=== PATIENT | female | born 1945 | race Caucasian/White ===

== ENCOUNTER → 2018-01-17 | Outpatient (CLI) | payer MEDICARE ==
--- NOTE | 2018-01-17 16:53 | CT ---
PROCEDURE: Head HISTORY: DIZZINESS, HEADACHE Indication: Same as above Comparison: None Technique: CT of the head was done without intravenous contrast was done in the orthogonal planes. This exam was performed according to our departmental dose-optimization program, which includes automated exposure control, adjustment of the mA and/or KV according to the patient's size and/or use of iterative reconstruction technique. FINDINGS: There is no intracranial hemorrhage, midline shift mass effect or acute focal infarct. There is prominence of the sylvian fissures and the cortical sulci reflecting age related volume loss. If clinical concern exists regarding an acute ischemic/vascular pathology being responsible for patient's symptomatology, an MRI of the brain is more sensitive than the current study, in ruling out such a possibility. There is good hutchinson/white matter differentiation. The ventricular system is normal. The mastoid air cells are unremarkable . The paranasal sinuses are unremarkable . There is no visualization of acute fractures involving the calvarium or the skull base. IMPRESSION: There is no acute intracranial abnormality. Age-related involutional changes are seen. Electronically signed by: Maik Ball MD 01/17/2018 4:52 PM CDT Workstation: [id number]
== END ==
LOC: CT 16:24
PROVIDERS: ATTEND Nurse Practitioner Family
DX: R51 Headache (principal); N39.0 Urinary tract infection, site not specified; I10 Essential (primary) hypertension; Z79.899 Other long term (current) drug therapy

== ENCOUNTER → 2018-02-07 | Outpatient (CLI) | payer MEDICARE | LOC: GMAJ 17:58 | PROVIDERS: ATTEND Family Medicine | DX: M79.1 Myalgia (principal) ==

== ENCOUNTER → 2018-10-17 | Outpatient (CLI) | payer MEDICARE | LOC: GMAJ 14:30 | PROVIDERS: ATTEND Family Medicine | DX: E03.9 Hypothyroidism, unspecified (principal) ==

== ENCOUNTER 2018-11-23 10:28 | Emergency (ER) | payer MEDICARE ==
[2018-11-23 10:51] VITALS: TEMP 98.5
--- NOTE | 2018-11-23 10:56 | ED.PDOC ---
History of Present Illness - General Chief Complaint: Neuro Symptoms/Deficits Stated Complaint: left sided weakness Time Seen by Provider: 11/23/18 10:52 Source: patient Exam Limitations: no limitations - History of Present Illness Initial Comments: Corine Shea 73 y/o female came to ER stating her left leg was weak at about 0430 h this morning but was able to get up and go to the bathroom went back to sleep and woke up this am still left leg weak and felt unsteady .Patient walking at ER without assistance no unsteadiness noted.No slurred speech,no facial weakness has left sided headache and took her migraine medicine which relieved the head ache.No blurry vision. Timing/Duration: 4-6 hours Severity: moderate Episode Description: see hpi Improving Factors: nothing Worsening Factors: nothing Associated Symptoms: other - see hpi Allergies/Adverse Reactions: Allergies Penicillins Allergy (Unknown, Verified 11/23/18 10:48) Home Medications: Ambulatory Orders Aspirin [Aspirin Adult Low Dose] 81 mg PO DAILY 11/23/18 Clopidogrel Bisulfate [Plavix] 75 mg PO QDPC #30 tab 11/23/18 Levothyroxine Sodium [Synthroid] 75 mcg PO DAILY 11/23/18 Metoprolol Succinate [Toprol Xl] 100 mg PO DAILY 11/23/18 Review of Systems - Review of Systems Constitutional: States: no symptoms reported EENTM: States: no symptoms reported Respiratory: States: no symptoms reported Cardiology: States: no symptoms reported Gastrointestinal/Abdominal: States: no symptoms reported Genitourinary: States: no symptoms reported Musculoskeletal: States: no symptoms reported Skin: States: no symptoms reported Neurological: States: see HPI Endocrine: States: no symptoms reported Past Medical History (General) - Patient Medical History Hx Stroke: No Hx Congestive Heart Failure: No Hx Hypertension: Yes Hx Thyroid Disease: Yes Hx Diabetes: No Hx Cancer: Yes - breast Surgical History: cholecystectomy, other - breast lumpectomy;hysterectomy - Vaccination History Hx Influenza Vaccination: No Hx Pneumococcal Vaccination: Yes - Social History Hx Tobacco Use: No Hx Physical Abuse: No Hx Emotional Abuse: No Family Medical History - Family History Mother Family History: Unknown Living Status: Unknown Hx Family Hypertension: Yes - mom Hx Cardiac Disease: Yes - dad Physical Exam - Physical Exam General Appearance: Alert, Comfortable, No apparent distress, Other - speaks in full sentences Eye Exam: bilateral normal ENT Exam: normal ENT inspection, hearing grossly normal, pharynx normal Neck: non-tender, supple, normal inspection, trachea midline Respiratory: chest non-tender, lungs clear, normal breath sounds Cardiovascular/Chest: normal peripheral pulses, regular rate, rhythm, no murmur Peripheral Pulses: radial,right: 2+, radial,left: 2+ Gastrointestinal/Abdominal: non tender, soft Back Exam: normal inspection, no CVA tenderness, no vertebral tenderness Extremities Exam: non-tender, no edema Mental Status: alert, oriented x 3 information assistant Exam: normal hearing, normal speech, PERRL Coordination/Gait: normal gait, negative Romberg's sign Motor/Sensory: no motor deficit, no sensory deficit, no pronator drift Skin Exam: normal color, warm/dry Progress - Progress Progress: 11/23/18 14:23 Vital Signs - 8 hr 11/23/18 11/23/18 11/23/18 10:47 11:08 12:00 Temperature 98.5 F Pulse Rate [ 73 83 83 Left Brachial] Respiratory 20 18 18 Rate Blood Pressure 214/113 201/96 206/111 [Left Arm] O2 Sat by Pulse 97 95 96 Oximetry 11/23/18 13:00 Temperature Pulse Rate [ 79 Left Brachial] Respiratory 18 Rate Blood Pressure 193/101 [Left Arm] O2 Sat by Pulse 98 Oximetry 11/23/18 15:02 Discuss all test result with patient no acute findings noted recommend admit to hospital for OBS and called up [facility] hospitalist for admit discuss lab findings and head ct findings but requesting MRI-Head prior to hospital admit since they wont do MRI in patient then called up X-ray same reason need precertification.This was relayed to patient and offered to get transferred to other hospital but declined wants to stay home called up her daughter to stay with her. - Results/Orders Results/Orders: 11/23/18 11:15 EKG STAT Laboratory Results - last 24 hr 11/23/18 11/23/18 11/23/18 10:40 10:40 12:05 WBC 8.8 9.7 RBC 4.68 4.63 Hgb 14.4 14.1 Hct 42.8 42.1 MCV 91.6 91.0 MCH 30.7 30.4 MCHC 33.5 33.4 RDW 12.8 12.7 Plt Count 407 H 370 MPV 9.2 8.4 Absolute Neuts (auto) 5.40 7.30 H Absolute Lymphs (auto) 2.00 1.30 Absolute Monos (auto) 0.80 0.70 Absolute Eos (auto) 0.50 H 0.40 Absolute Basos (auto) 0.10 0.10 Neutrophils % 61.5 75.1 Lymphocytes % 22.1 13.0 L Monocytes % 9.6 H 6.9 Eosinophils % 5.6 H 3.8 Basophils % 1.2 1.2 PT 9.6 INR 0.96 PTT (SP) 19.5 L Sodium 134 L Cancelled Potassium 3.9 Cancelled Chloride 102 Cancelled Carbon Dioxide 21 Cancelled Anion Gap 14.9 Cancelled BUN 13 Cancelled Creatinine 0.75 Cancelled BUN/Creatinine Ratio 17.3 Cancelled Random Glucose 100 Cancelled Serum Osmolality 268.4 L Cancelled Calcium 9.4 Cancelled Magnesium Cancelled Total Bilirubin 0.6 AST 24 ALT 20 Alkaline Phosphatase 75 Creatine Kinase 56 CK-MB (CK-2) 1.2 CK-MB (CK-2) % Not Reportable Troponin I < 0.02 Serum Total Protein 8.2 Albumin 4.5 Globulin 3.7 H Albumin/Globulin Ratio 1.2 11/23/18 12:05 WBC RBC Hgb Hct MCV MCH MCHC RDW Plt Count MPV Absolute Neuts (auto) Absolute Lymphs (auto) Absolute Monos (auto) Absolute Eos (auto) Absolute Basos (auto) Neutrophils % Lymphocytes % Monocytes % Eosinophils % Basophils % PT 9.6 INR 0.96 PTT (SP) 19.5 L Sodium Potassium Chloride Carbon Dioxide Anion Gap BUN Creatinine BUN/Creatinine Ratio Random Glucose Serum Osmolality Calcium Magnesium Total Bilirubin AST ALT Alkaline Phosphatase Creatine Kinase CK-MB (CK-2) CK-MB (CK-2) % Troponin I Serum Total Protein Albumin Globulin Albumin/Globulin Ratio - EKG/XRAY/CT EKG: Sinus, no ST T wave changes Comments: HR-90 Xray Comments: Bernabe.Carotid Sono-no significant stenoses CT Ordered: Yes - head -no acute intracranial abnormalities Stroke Information - Onset of Symptoms Stroke Onset of Symptoms Date: 11/23/18 Stroke Onset of Symptoms Time: 04:30 - Contraindications Antithrombotic Contraindication: Treatment not indicated Departure - Departure Clinical Impression: Weakness of left lower extremity, Hypertensive urgency Time of Disposition: 15:14 Disposition: Discharge to Home or Self Care Condition: Fair Departure Forms: ED Discharge - Pt. Copy, Patient Portal Self Enrollment Instructions: Transient Ischemic Attack (DC), Transient Ischemic Attack, High Blood Pressure (DC), DASH Diet Referrals: Seb Bonilla MD [Primary Care Provider] - 1-2 Weeks Prescriptions: Clopidogrel Bisulfate [Plavix] 75 mg PO QDPC #30 tab Home Medications: Ambulatory Orders Aspirin [Aspirin Adult Low Dose] 81 mg PO DAILY 11/23/18 Clopidogrel Bisulfate [Plavix] 75 mg PO QDPC #30 tab 11/23/18 Levothyroxine Sodium [Synthroid] 75 mcg PO DAILY 11/23/18 Metoprolol Succinate [Toprol Xl] 100 mg PO DAILY 11/23/18 Additional Instructions: Increase Atenolol-100 mg take 2 tablet in am;Continue with all home medication including Baby aspirin;Return to Emergency Room if symptoms worsens;Follow up with primary Md 27 Nov 2018 for recheck
--- NOTE | 2018-11-23 11:11 | CT ---
EXAM DESCRIPTION: Head CLINICAL HISTORY: HTN, WHALEN COMPARISON: 01/17/2018 TECHNIQUE: Multiple axial images of the head without contrast. Multiplanar reformatted images. This exam was performed according to our departmental dose-optimization program, which includes automated exposure control, adjustment of the mA and/or kV according to patient size and/or use of iterative reconstruction technique. FINDINGS: There is no CT evidence of intracranial hemorrhage, mass effect, or large territory infarction. Mild generalized volume loss. Mild patchy supratentorial white matter hypodensities. There are no abnormal extra-axial fluid collections. Calcific plaque in the visualized arteries. There is no acute calvarial defect. The visualized paranasal sinuses and the mastoids are clear. IMPRESSION: 1. No CT evidence of an acute intracranial abnormality. If there is concern for an acute or subacute infarct, consider follow-up MRI. 2. Senescent changes. Electronically signed by: Cliff Luz MD 11/23/2018 11:07 AM CDT
[2018-11-23] MEDS ORDERED: CLOPIDOGREL 75 MG TAB PO ONE (12:25)
[2018-11-23] MEDS ORDERED: ASPIRIN TABLET 325 MG TAB PO ONE (12:25)
[2018-11-23] MEDS ORDERED: ATORVASTATIN 20 MG TAB PO ONE (12:26)
--- NOTE | 2018-11-23 13:41 | US ---
EXAM DESCRIPTION: Carotid Duplex: ULTRASOUND. CLINICAL HISTORY: 73 years Female weakness left leg COMPARISON: CT scan of the head on the same visit. TECHNIQUE: Transcutaneous scanning utilizing hutchinson-scale and Doppler modes to evaluate the bilateral carotid systems and vertebral arteries. Percentage of diameter of stenosis or no stenosis recorded will be based upon NASCET criteria. FINDINGS: Peak systolic/end diastolic (CM-Sec) CCA Right 82/17 Left 83/22. ICA Right proximal 74/16, distal 69/20. Left proximal 95/23, Distal 79/19. Vertebral Right 58/10 Left 53/11. ECA (PS Only) Right 87 left 93. ICA/CCA peak systolic ratio: Right 0.9 Left 1.1 ICA/CCA end diastolic ratio: Right 0.9 Left 1.0 Vertebral arteries: antegrade flow. Comments Comments: Calcified plaque in the proximal right ICA with narrowing and spectral broadening. Calcified plaque proximal left ECA with spectral broadening and turbulent color flow. 39% diameter stenosis proximal left ICA. IMPRESSION: 1. Doppler evaluation of the bilateral carotid systems and vertebral arteries shows no hemodynamically significant stenoses. Almost 40% diameter stenosis in the proximal left ICA. 2. No significant amount of plaque seen in the carotid arteries bilaterally. Bilateral vertebral arteries showed antegrade-cephalad flow. Electronically signed by: Anthony Rubalcava MD 11/23/2018 1:38 PM CDT
[2018-11-23] MEDS ORDERED: LABETALOL INJ 5 MG/ML VIAL IV ONE (13:46)
[2018-11-23] MEDS ORDERED: SODIUM CHLORIDE 0.9% 500ML 500 ML ONE (14:31)
[2018-11-23] MEDS ORDERED: SODIUM CHLORIDE 0.9% 500ML 500 ML IVS ONE (14:32)
[2018-11-23 15:18] VITALS: BP 162/91; O2SAT 97
== END 2018-11-23 15:30 | disposition home or self-care (01) ==
LOC: ER 10:28
DX: I16.0 Hypertensive urgency (principal); R29.898 Other symptoms and signs involving the musculoskeletal system; R51 Headache; E07.9 Disorder of thyroid, unspecified; Z85.3 Personal history of malignant neoplasm of breast; Z79.899 Other long term (current) drug therapy; Z88.0 Allergy status to penicillin
CPT/HCPCS: 36415; 70450; 80053; 82550; 82553; 84484; 85025; 85610; 85730; 93005; 93880; J7040

== ENCOUNTER → 2018-12-22 | Outpatient (CLI) | payer MEDICARE ==
--- NOTE | 2018-12-24 18:07 | MRI ---
EXAM: Brain w/oContrast CLINICAL HISTORY: TRANSIENT CEREBRAL ISCHEMIC ATTACK COMPARISON STUDY: CT head January 23, 2019 TECHNICAL: Multi-sequence, multiplanar non-contrast MRI images were acquired through the brain. FINDINGS: No acute abnormality on the diffusion weighted scan. There is no finding to suggest an acute territorial infarction. There are minimal periventricular white matter changes suggestive of chronic microvascular disease. There is no mass or mass effect. There is no evidence for hemorrhage. Flow voids are seen within the expected intracranial vessels. Posterior fossa and midline structures are negative. IMPRESSION: MINIMAL PERIVENTRICULAR WHITE MATTER CHANGES WITHOUT ACUTE INTRACRANIAL ABNORMALITY. Electronically signed by: Momo Dweey MD 12/24/2018 6:04 PM CDT
== END ==
LOC: MRI 13:00
PROVIDERS: ATTEND Family Medicine
DX: G45.9 Transient cerebral ischemic attack, unspecified (principal)

== ENCOUNTER → 2020-06-30 | Outpatient (CLI) | payer MEDICARE | LOC: GMAJ 17:23 | PROVIDERS: ATTEND Family Medicine | DX: E03.8 Other specified hypothyroidism (principal); E78.2 Mixed hyperlipidemia; I10 Essential (primary) hypertension ==